=== PATIENT | female | born 1975 | race Caucasian/White ===

== ENCOUNTER 2019-10-23 08:09 | Emergency (ER) | payer BC ==
[2019-10-23 08:16] VITALS: BP 117/64
--- NOTE | 2019-10-23 08:40 | UC ---
Eye Complaint HPI - HPI Summary HPI Summary: 44-year-old woman comes in with a chief complaint of right upper eyelid swelling and erythema. Eye feels normal. No complaint of any specific injury. She has been using warm compresses and the area of swelling and redness is increasing. No fevers or chills. - History of Current Complaint Chief Complaint: UCEye Stated Complaint: EYE COMPLAINT Time Seen by Provider: 10/23/19 08:32 Hx Last Menstrual Period: 10/04/19 Pain Intensity: 1 - Allergies/Home Medications Allergies/Adverse Reactions: Allergies Allergy/AdvReac Type Severity Reaction Status Date / Time No Known Allergies Allergy Verified 10/23/19 08:17 PMH/Surg Hx/FS Hx/Imm Hx Previously Healthy: Yes - Surgical History Surgical History: Yes Surgery Procedure, Year, and Place: dental - Family History Known Family History: Positive: Non-Contributory - Social History Alcohol Use: Occasionally Substance Use Type: None Smoking Status (MU): Never Smoked Tobacco Review of Systems All Other Systems Reviewed And Are Negative: Yes Constitutional: Positive: Negative Skin: Positive: Negative Eyes: Positive: Other - SEE HPI ENT: Positive: Negative Respiratory: Positive: Negative Cardiovascular: Positive: Negative Gastrointestinal: Positive: Negative Motor: Positive: Negative Neurovascular: Positive: Negative Musculoskeletal: Positive: Negative Neurological: Positive: Negative Psychological: Positive: Negative Is Patient Immunocompromised?: No Physical Exam Triage Information Reviewed: Yes Appearance: Well-Appearing, No Pain Distress, Well-Nourished Vital Signs: Initial Vital Signs Temp 97.8 F 10/23/19 08:14 Pulse 76 10/23/19 08:14 Resp 15 10/23/19 08:14 BP 117/64 10/23/19 08:14 Pulse Ox 100 10/23/19 08:14 Vital Signs Reviewed: Yes Eyes: Positive: Conjunctiva Clear, Other: - PERRLA EOMI. The right upper eyelid is slightly swollen with erythema. There is no spread of the erythema past the eyelid. ENT: Negative: Nasal drainage Neck: Positive: Supple Respiratory: Positive: No respiratory distress Musculoskeletal: Positive: Strength Intact, ROM Intact Neurological: Positive: Alert, Muscle Tone Normal Psychological: Positive: Age Appropriate Behavior Skin: Positive: Other - Erythema and swelling of the right upper eyelid Eye Complaint Course/Dx - Course Course Of Treatment: At this time we'll treat for stye in the right upper eyelid with tobramycin eye drops and warm moist compresses. I discussed the possibility of cellulitis with the patient and I recommended that if she did not improve to start an oral antibiotic. I also wrote a prescription for Keflex. Patient to be reevaluated if worsening or not improved or any questions or concerns. - Differential Dx/Diagnosis Provider Diagnosis: Hordeolum of right upper eyelid Discharge ED - Sign-Out/Discharge Documenting (check all that apply): Patient Departure All imaging exams completed and their final reports reviewed: No Studies - Discharge Plan Condition: Stable Disposition: HOME Prescriptions: Cephalexin CAP* [Keflex CAP*] 500 mg PO TID #30 cap Tobramycin 0.3% OPHTH.LETA* 1 drop RIGHT EYE Q4H #1 btl Patient Education Materials: Ben (ED) Referrals: [facility] [place] [facility] [Outside] Additional Instructions: FOLLOW UP WITH YOUR DOCTOR IF NOT COMPLETELY IMPROVED. GET REEVALUATED SOONER IF NOT IMPROVED OR WORSE OR ANY QUESTIONS OR CONCERNS. - Billing Disposition and Condition Condition: STABLE Disposition: Home
== END 2019-10-23 08:57 | disposition home or self-care (01) ==
LOC: UCEAST 08:09
DX: H00.011 Hordeolum externum right upper eyelid (principal)
CPT/HCPCS: 99212; G0463